=== PATIENT | male | born 1960 | race African-American/Black ===

== ENCOUNTER 2017-10-28 04:06 | Emergency (ER) | payer MEDICAID, OTHER ==
[~2017-10-28] VITALS: Ht 182.9 cm; Wt 103.5 kg
[~2017-10-28 04:06] MED LIST: ASPI-1159 PO; bp med
[2017-10-28] MEDS ORDERED: ACETAMINOPHEN 500MG TABLET PO ONE (07:15)
[2017-10-28 08:43] VITALS: BP 112/67
== END 2017-10-28 08:43 | disposition home or self-care (01) ==
LOC: ER 07:42
DX: M79.644 Pain in right finger(s) (principal); J44.9 Chronic obstructive pulmonary disease, unspecified; I10 Essential (primary) hypertension; F17.200 Nicotine dependence, unspecified, uncomplicated; Z90.49 Acquired absence of other specified parts of digestive tract; Z96.649 Presence of unspecified artificial hip joint; Z98.890 Other specified postprocedural states; Z79.82 Long term (current) use of aspirin
CPT/HCPCS: 29125; 73130; 99284; Z7610

== ENCOUNTER 2019-10-27 13:33 | Emergency (ER) | payer MEDICARE, MEDICAID ==
[~2019-10-27] VITALS: Ht 182.9 cm; Wt 103.0 kg
[~2019-10-27 13:33] MED LIST changes: -ASPI-1159 PO; +ASPI-1497 PO
[2019-10-27] MEDS ORDERED: KETOROLAC 60MG/2ML VIAL IM ONE (14:15)
[2019-10-27 14:31] LABS: CHLORIDE 100 mEq/L (98-107)
[2019-10-27 14:33] LABS: BASOPHILS % 0.4 % (0.0-2.0); EOSINOPHILS % 4.4 % (0.0-5.0); HEMATOCRIT. 45.1 % (42.0-52.0); HEMOGLOBIN. 15.9 g/dL (14.0-18.0); LYMPHOCYTES % 16.8 % (20.0-50.0); MEAN CORPUSCULAR HEMOGLOBIN 29.8 pg (28.0-32.0); MEAN CORPUSCULAR VOLUME 84.4 fL (80.0-94.0); MEAN PLATELET VOLUME 8.2 fl (7.4-10.4); MONOCYTES % 12.6 % (2.0-8.0); NEUTROPHILS % 65.8 % (40.0-76.0); PLATELET 217 x1000/uL (130-400); RED BLOOD CELL COUNT 5.34 mill/uL (4.7-6.1); RED CELL DISTRIBUTION WIDTH 13.5 % (11.6-14.6)
[2019-10-27 17:26] VITALS: BP 124/79
== END 2019-10-27 18:00 | disposition home or self-care (01) ==
LOC: ER 13:33
DX: N45.2 Orchitis (principal); N43.3 Hydrocele, unspecified; N43.41 Spermatocele of epididymis, single; J44.9 Chronic obstructive pulmonary disease, unspecified; I10 Essential (primary) hypertension
CPT/HCPCS: 36415; 76870; 80048; 85025; 93976; 96372; 99284; J1885

== ENCOUNTER 2021-01-07 15:05 | Emergency (ER) | payer MEDICARE, MEDICAID ==
[~2021-01-07] VITALS: Ht 182.9 cm; Wt 102.0 kg
[2021-01-07] MEDS ORDERED: ONDANSETRON 4MG ODT PO ONE (17:45)
[2021-01-07] MEDS ORDERED: HYDROCODONE/ACETAMINOPHEN 10/325MG TABLET PO ONE (17:45)
[2021-01-07 18:09] LABS: BASOPHILS % 0.5 % (0.0-2.0); EOSINOPHILS % 1.2 % (0.0-5.0); HEMATOCRIT. 44.4 % (42.0-52.0); HEMOGLOBIN. 15.5 g/dL (14.0-18.0); LYMPHOCYTES % 20.1 % (20.0-50.0); MEAN CORPUSCULAR HEMOGLOBIN 28.3 pg (28.0-32.0); MEAN CORPUSCULAR VOLUME 81.2 fL (80.0-94.0); MEAN PLATELET VOLUME 8.3 fl (7.4-10.4); MONOCYTES % 6.9 % (2.0-8.0); NEUTROPHILS % 71.3 % (40.0-76.0); PLATELET 235 x1000/uL (130-400); RED BLOOD CELL COUNT 5.47 mill/uL (4.7-6.1); RED CELL DISTRIBUTION WIDTH 13.7 % (11.6-14.6)
[2021-01-07 18:14] LABS: CHLORIDE 106 mEq/L (98-107)
[2021-01-07 18:17] VITALS: BP 130/100
[2021-01-07 20:04] LABS: CLARITY URINE CLEAR (CLEAR); COLOR URINE YELLOW (YELLOW); KETONES URINE TRACE (NEGATIVE); LEUKOCYTE ESTERASE URINE NEGATIVE (NEGATIVE); NITRITE URINE NEGATIVE (NEGATIVE); OCCULT BLOOD URINE NEGATIVE (NEGATIVE); PH URINE 5.5 (4.5-8.0); PROTEIN URINE NEGATIVE (NEGATIVE); SPECIFIC GRAVITY URINE 1.048 (1.005-1.030); UROBILINOGEN URINE 0.2 E.U./dL (0.2-1.0)
[2021-01-07] MEDS ORDERED: AMOX-424 MT (20:40)
[2021-01-07] MEDS ORDERED: HYDR-4001 MT (20:41)
[2021-01-07] MEDS ORDERED: IOHEXOL-300 100 ML BOTTLE ONE (21:58)
[2021-01-08] MEDS ORDERED: HYDR-4001 PO (13:23)
== END 2021-01-07 20:54 | disposition home or self-care (01) ==
LOC: ER 15:05
DX: R10.31 Right lower quadrant pain (principal); J44.1 Chronic obstructive pulmonary disease with (acute) exacerbation; I10 Essential (primary) hypertension; E78.00 Pure hypercholesterolemia, unspecified; Z90.49 Acquired absence of other specified parts of digestive tract
CPT/HCPCS: 36415; 74177; 80053; 81003; 83690; 85025; 93005; 99285; Q0162; Q9967